=== PATIENT | male | born 1990 ===

== ENCOUNTER → 2016-03-07 | Outpatient (REF) | payer OTHER ==
[2016-03-07 18:05] LABS: % NORMAL FORMS 8 % (>=4); IMMOTILITY 28 %; NON PROGRESSIVE MOTILITY (c) 44 %; PROGRESSIVE MOTILITY (a) 28 % (>=32); SPERM ABNORMAL FORMS WBC'S NOTED; SPERM# 69.5 M/Ejac (33-46); TOTAL MOTILITY 72 % (>=40)
[2016-03-07 18:06] LABS: TOTAL FUNCTIONAL 3.5 M/Ejac.; TOTAL PROGRESSIVE SPERM 19.5 M/Ejac.
== END ==
LOC: M LAB REF 17:15
PROVIDERS: ATTEND Physical Therapist
DX: Z30.9 Encounter for contraceptive management, unspecified (principal)

== ENCOUNTER → 2016-07-13 | Outpatient (REF) | payer OTHER ==
[2016-07-13 15:13] LABS: #IMMOTILE SPERM COUNTED 16; #MOTILE SPERM COUNTED 8.5; % MOTILITY 34 (> 25%); TOTAL # SPERM COUNTED 24.5 M/ml
== END ==
LOC: M LAB REF 14:45
PROVIDERS: ATTEND Obstetrics & Gynecology
DX: N46.8 Other male infertility (principal)

== ENCOUNTER → 2017-02-01 | Outpatient (REF) | payer OTHER ==
[2017-02-01 10:41] LABS: % NORMAL FORMS < 4 % (>=4); IMMOTILITY 92 %; NON PROGRESSIVE MOTILITY (c) 5 %; PROGRESSIVE MOTILITY (a) 3 % (>=32); SPERM ABNORMAL FORMS OTHER (SPECIFIY); SPERM# 101.8 M/Ejac (>=39); TOTAL FUNCTIONAL 0.1 M/Ejac.; TOTAL MOTILITY 8 % (>=40); TOTAL PROGRESSIVE SPERM 2.6 M/Ejac.
== END ==
LOC: M LAB REF 10:08
PROVIDERS: ATTEND Obstetrics & Gynecology
DX: N46.8 Other male infertility (principal)

== ENCOUNTER → 2017-04-12 | Outpatient (REF) | payer OTHER ==
[2017-04-12 20:56] LABS: SEMEN APPEARANCE OPAQUE (OPAQUE); SEMEN VISCOSITY VISCOUS (LIQUID); SEMEN VOLUME 3.2 ml (4.0-5.0); SEMEN pH 8.5 (7.0-8.0); SPERM ABNORMAL FORMS OTHER (SPECIFIY)
[2017-04-12 20:57] LABS: % NORMAL FORMS < 4 % (>=4); IMMOTILITY 95 %; NON PROGRESSIVE MOTILITY (c) 3 %; PROGRESSIVE MOTILITY (a) 2 % (>=32); SPERM CONCENTRATION 38.7 M/ml (>=15.0); SPERM# 123.7 M/Ejac (>=39); TOTAL FUNCTIONAL 0.1 M/Ejac.; TOTAL MOTILITY 5 % (>=40); TOTAL PROGRESSIVE SPERM 2.2 M/Ejac.; WBC CONCENTRATION <=1 M/ml (<=1 M/ml)
== END ==
LOC: M LAB REF 15:07
DX: N46.9 Male infertility, unspecified (principal)